=== PATIENT | male | born 1950 | race Two or more races ===

== ENCOUNTER 2025-06-29 12:00 | Inpatient (IN) | payer OTHER ==
[~2025-06-29] VITALS: Ht 160 cm; Wt 63.5 kg
[2025-07-04 14:42] VITALS: BP 174/78
[2025-07-04] MEDS ORDERED: PLAVIX75 MG (14:55)
[2025-07-04] MEDS ORDERED: VITAMIN B (14:56)
[2025-07-04] MEDS ORDERED: GABAPENTIN100 M2 (14:56)
[2025-07-04] MEDS ORDERED: LIPITOR40 M1 (14:56)
[2025-07-04] MEDS ORDERED: OMEPRAZOLE MAGN20 MG (14:57)
[2025-07-06] MEDS ORDERED: CEFTRIAXONE SODIUM 2,000 MG VIAL ONE (06:25)
[2025-07-06] MEDS ORDERED: METRONIDAZOLE/SODIUM CHLORIDE 500 MG/100 ML PIGGYBACK IV ONE (06:25)
[2025-07-06] MEDS ORDERED: BUPIVACAINE HCL/MPF 0.5% 30ML VIAL ONE (06:53)
[2025-07-06] MEDS ORDERED: LIDOCAINE HCL 1%/EPINEPHRINE 20ML VIAL IJ ONE (06:53)
[2025-07-06] MEDS ORDERED: 0.9 % SODIUM CHLORIDE 1,000 ML IV SCH (10:15)
[2025-07-06] MEDS ORDERED: OxyCODONE HCL 5 MG TABLET (ROXICODONE) PO PRN (10:15)
[2025-07-06] MEDS ORDERED: ONDANSETRON HCL 2 MG/ML VIAL IV PRN (10:15)
[2025-07-06] MEDS ORDERED: DEXTROSE 50 % IN WATER 0.5 G/ML DISP.SYRIN IV PRN (10:15)
[2025-07-06] MEDS ORDERED: MORPHINE SULFATE 4 MG/ML CARTRIDGE IV PRN (10:15)
[2025-07-06 12:46] LABS: BASO % 0.2 % (0.1-1.2); EOS # 0.01 (0.04-0.54); EOS % 0.1 % (0.7-7.0); LYMPH # 0.41 (1.18-3.74); LYMPH % 3.9 % (19.3-53.1); MEAN PLATELET VOLUME 9.90 fl (9.4-12.4); MONO # 0.34 (0.24-0.82); MONO % 3.2 % (4.7-12.5); NEUT # 9.69 (1.56-6.13); NEUT % 92.0 % (34.0-71.1); RED CELL DISTRIBUTION WIDTH 13.3 % (11.6-14.4)
[2025-07-06] MEDS ORDERED: HYOSCYAMINE SULFATE 0.125 MG TAB.SUBL SL SCH (13:00)
[2025-07-06 13:39] LABS: BUN CREA RATIO 11.0 (7.0-25.0); CREATININE SERUM 2.44 mg/dL (0.70-1.30); GFR 26.09; GLUCOSE FASTING 148.0 mg/dL (65-100); OSMOLALITY SERUM 293.0 MOSM/KG (275-295)
[2025-07-06] MEDS ORDERED: ACETAMINOPHEN 500 MG GEL..CAP PO SCH (14:00)
[2025-07-06 14:38] VITALS: BP 174/78; O2SAT 98
[2025-07-06] MEDS ORDERED: ENALAPRILAT DIHYDRATE 1.25 MG/ML VIAL IV PRN (14:45)
[2025-07-06] MEDS ORDERED: METRONIDAZOLE/SODIUM CHLORIDE 500 MG/100 ML PIGGYBACK IV SCH (17:00)
[2025-07-06 18:04] VITALS: BP 165/77; O2SAT 96
[2025-07-06] MEDS ORDERED: CELECOXIB 200 MG CAPSULE PO SCH (21:00)
[2025-07-06] MEDS ORDERED: FAMOTIDINE/PF 20 MG/2 ML VIAL IV PUSH SCH (21:00)
[2025-07-07 00:52] VITALS: BP 101/50; O2SAT 95
[2025-07-07 06:17] LABS: BASO % 0.8 % (0.1-1.2); EOS # 0.02 (0.04-0.54); EOS % 0.3 % (0.7-7.0); LYMPH # 1.17 (1.18-3.74); LYMPH % 16.0 % (19.3-53.1); MEAN PLATELET VOLUME 10.40 fl (9.4-12.4); MONO # 0.79 (0.24-0.82); MONO % 10.8 % (4.7-12.5); NEUT # 5.22 (1.56-6.13); NEUT % 71.7 % (34.0-71.1); RED CELL DISTRIBUTION WIDTH 13.2 % (11.6-14.4)
[2025-07-07 07:06] LABS: BUN CREA RATIO 9.0 (7.0-25.0); CREATININE SERUM 2.77 mg/dL (0.70-1.30); GFR 22.54; GLUCOSE FASTING 115.0 mg/dL (65-100); OSMOLALITY SERUM 294.0 MOSM/KG (275-295)
[2025-07-07 08:46] VITALS: BP 104/52; O2SAT 97
[2025-07-07] MEDS ORDERED: hydrALAZINE HCL 20 MG VIAL IV PRN (13:00)
[2025-07-07 16:00] VITALS: BP 149/62; O2SAT 97
[2025-07-07] MEDS ORDERED: ENOXAPARIN SODIUM 30 MG/0.3 ML SYRINGE SUBCUTANEO SCH (17:00)
[2025-07-07] MEDS ORDERED: ENOXAPARIN SODIUM 40 MG/0.4 ML SYRINGE SUBCUTANEO SCH (17:00)
[2025-07-07] MEDS ORDERED: ATORVASTATIN CALCIUM 40 MG TABLET PO SCH (17:00)
[2025-07-08 01:30] VITALS: BP 139/75; O2SAT 97
[2025-07-08 07:38] LABS: BASO % 0.3 % (0.1-1.2); EOS # 0.04 (0.04-0.54); EOS % 0.4 % (0.7-7.0); LYMPH # 1.18 (1.18-3.74); LYMPH % 10.6 % (19.3-53.1); MEAN PLATELET VOLUME 10.90 fl (9.4-12.4); MONO # 0.64 (0.24-0.82); MONO % 5.7 % (4.7-12.5); NEUT # 9.25 (1.56-6.13); NEUT % 82.6 % (34.0-71.1); RED CELL DISTRIBUTION WIDTH 13.6 % (11.6-14.4)
[2025-07-08 08:00] VITALS: BP 128/78; O2SAT 97
[2025-07-08 08:09] LABS: ALT/SGPT 38.0 U/L (12-78); AST/SGOT 41.0 U/L (15-37); BILIRUBIN TOTAL 1.63 mg/dL (0.3-1.2); BUN CREA RATIO 10.0 (7.0-25.0); CREATININE SERUM 2.46 mg/dL (0.70-1.30); GFR 25.85; GLOBULINA 3.0 G/DL (2.4-3.5); GLUCOSE FASTING 99.0 mg/dL (65-100); OSMOLALITY SERUM 295.0 MOSM/KG (275-295)
[2025-07-08] MEDS ORDERED: ENOXAPARIN SODIUM 40 MG/0.4 ML SYRINGE SUBCUTANEO SCH (09:00)
[2025-07-08] MEDS ORDERED: ENOXAPARIN SODIUM 30 MG/0.3 ML SYRINGE SUBCUTANEO SCH (09:00)
[2025-07-08] MEDS ORDERED: SODIUM CHLORIDE 0.45 % 1,000 ML IV SCH (14:15)
[2025-07-08 16:00] VITALS: BP 120/66; O2SAT 97
[2025-07-09 00:41] VITALS: BP 121/72; O2SAT 98
[2025-07-09] MEDS ORDERED: HYOSCYAMINE0.125 M1 SL (11:01)
[2025-07-09] MEDS ORDERED: PEPCID AC20 MG PO (11:02)
[2025-07-09] MEDS ORDERED: TRAM1TAB98 PO (11:02)
== END 2025-07-09 13:20 | disposition home or self-care (01) | DRG 330 ==
LOC: O/R 07-06 06:00 → SURH 07-06 06:00 → SURG 07-06 08:30 → SURH 07-06 14:13
PROVIDERS: Internal Medicine Geriatric Medicine; ADMIT Surgery; ATTEND Surgery
PROC: 0DBP4ZZ Excision of Rectum, Percutaneous Endoscopic Approach (ICD-10-PCS; 2025-07-06)
PROC: 07BC4ZZ Excision of Pelvis Lymphatic, Percutaneous Endoscopic Approach (ICD-10-PCS; 2025-07-06)
PROC: 0DJD8ZZ Inspection of Lower Intestinal Tract, Via Natural or Artificial Opening Endoscopic (ICD-10-PCS; 2025-07-06)
PROC: 0DTN4ZZ Resection of Sigmoid Colon, Percutaneous Endoscopic Approach (ICD-10-PCS; principal; 2025-07-06 08:30)
DX: C19 Malignant neoplasm of rectosigmoid junction (principal); N18.4 Chronic kidney disease, stage 4 (severe); I12.9 Hypertensive chronic kidney disease with stage 1 through stage 4 chronic kidney disease, or unspecified chronic kidney disease; D37.4 Neoplasm of uncertain behavior of colon; D12.5 Benign neoplasm of sigmoid colon; R59.0 Localized enlarged lymph nodes; Z86.73 Personal history of transient ischemic attack (TIA), and cerebral infarction without residual deficits; E78.00 Pure hypercholesterolemia, unspecified